=== PATIENT | male | born 1970 | race Hispanic/Latino ===

== ENCOUNTER 2017-09-16 13:51 | Emergency (ER) | payer OTHER ==
[~2017-09-16 13:51] MED LIST: GLYB1TAB3 PO; VALS1TAB54 PO
[2017-09-16 14:11] LABS: BASOPHILS % (AUTO) 1.2 % (0.0-5.0); EOSINOPHILS % (AUTO) 1.5 % (0.0-8.0); HEMATOCRIT 43.1 % (42-54); LYMPHOCYTES % (AUTO) 26.3 % (21.0-51.0); MEAN CORPUSCULAR HEMOGLOBIN 29.8 pg (27.0-33.0); MEAN CORPUSCULAR HGB CONC 34.4 g/dL (32.0-36.0); MEAN CORPUSCULAR VOLUME 86.7 fL (79-99); MONOCYTES % (AUTO) 8.3 % (3.0-13.0); NEUTROPHILS % (AUTO) 62.7 % (40.0-77.0); PLATELET COUNT (AUTO) 257 K/uL (130-400); RED BLOOD CELL COUNT(AUTO) 4.97 MIL/uL (4.50-6.20); RED CELL DISTRIBUTION WIDTH 13.4 % (11.0-15.5); WHITE BLOOD COUNT (AUTO) 6.1 K/uL (4.8-10.8)
[2017-09-16 14:27] LABS: INR 0.98 (0.85-1.15); PARTIAL THROMBOPLASTIN TIME 24.6 SEC (26.3-35.5); PROTHROMBIN TIME 10.3 SEC (9.6-11.6)
[2017-09-16 14:41] LABS: ALBUMIN 3.3 g/dL (3.5-5.0); BILIRUBIN,TOTAL 0.5 mg/dL (0.2-1.0); CREATININE 1.3 mg/dL (0.5-1.5); POTASSIUM 3.7 mmol/L (3.5-5.1); TOTAL PROTEIN, SERUM 7.1 g/dL (6.0-8.3)
[2017-09-16] MEDS ORDERED: FENTANYL CITRATE PF 50 MCG/1 ML 2ML VIAL ONE ×2 (14:59→15:14)
[2017-09-16] MEDS ORDERED: TETANUS/DIPHTHERIA TOXOID [ADULT] 0.5 ML VIAL IM ONE (15:00)
[2017-09-16] MEDS ORDERED: SODIUM CHLORIDE 0.9% 1000ML 2,000 ML IV ONE (15:25)
[2017-09-16] MEDS ORDERED: INSULIN HUMULIN R 100 UNIT/ML 3ML ONE (15:25)
[2017-09-27] MEDS ORDERED: INSNOV IVP (11:44)
[2017-09-27] MEDS ORDERED: ESCI10TA54 PO (11:44)
[2017-09-27] MEDS ORDERED: ACET1TAB25 PO (11:48)
[2017-09-27] MEDS ORDERED: INSLAN SQ (11:49)
[2017-09-27] MEDS ORDERED: CYCL5TAB PO (11:51)
== END 2017-09-16 18:14 | disposition home or self-care (01) ==
LOC: EDH 13:51
DX: S83.095A Other dislocation of left patella, initial encounter (principal); E11.9 Type 2 diabetes mellitus without complications; R79.1 Abnormal coagulation profile; W18.39XA Other fall on same level, initial encounter; Y93.89 Activity, other specified; Y92.89 Other specified places as the place of occurrence of the external cause; Y99.8 Other external cause status
CPT/HCPCS: 27560; 36415; 73560; 73562; 80053; 85025; 85610; 85730; 90471; 90714; 94761; 96374; 96375; 99291; J1815; J3010 ×2; J7030

== ENCOUNTER 2024-12-22 15:50 | Emergency (ER) | payer BC, SELFPAY ==
[~2024-12-22] VITALS: Ht 182.9 cm; Wt 133.8 kg
[~2024-12-22 15:50] MED LIST changes: +ACET-2079 PO; +CEPH500C2 PO; +CYCL5TAB3 PO; +ESCI-8 PO; +GLYB-173 PO; +INSLAN SQ; +INSNOV IVP; +INSU100I3 SQ; +TYL3 PO; -VALS1TAB54 PO; +VALS1TAB8 PO; +VALS1TAB81 PO
--- NOTE | 2024-12-22 16:32 | EKG ---
[facility] – [place], [place] Test Date: 2024-12-22 Test Time: 16:25:35 Pat Name: BECKY RIOS Department: ED Room: Gender: M [employer] Internship: 08 : 1970 Requested By: RENE MENDEZ Order Number: [id number] Reading MD: Yoni Oleary Measurements Intervals [place] Rate: 106 P: 2 [place]: 189 QRS: -69 QRSD: 104 T: 78 QT: 350 QTc: 464 Interpretive Statements Sinus tachycardia LAD, consider LAFB or inferior infarct Compared to ECG 10/09/2017 01:16:00 No significant changes Electronically Signed On 12-22-2024 19:00:46 FOOD ORDER EXPEDITER by Yoni Oleary Please click the below link to view image of tracing.
[2024-12-22 16:57] LABS: BASOPHILS # (AUTO) 0.03 K/uL (0.00-0.20); BASOPHILS % (AUTO) 0.4 % (0.0-5.0); EOSINOPHILS # (AUTO) 0.13 K/uL (0.00-0.70); EOSINOPHILS % (AUTO) 1.6 % (0.0-8.0); HEMATOCRIT 44.5 % (42-54); IMMATURE GRANULOCYTE ABSOLUTE 0.11 K/uL (0-1); LYMPHOCYTES # (AUTO) 1.2 K/uL (1.0-4.8); LYMPHOCYTES % (AUTO) 14.1 % (21.0-51.0); MEAN CORPUSCULAR HEMOGLOBIN 29.4 pg (27.0-33.0); MONOCYTES # (AUTO) 0.6 K/uL (0.1-1.0); MONOCYTES % (AUTO) 7.2 % (3.0-13.0); NEUTROPHILS # (AUTO) 6.2 K/uL (1.8-7.7); NEUTROPHILS % (AUTO) 75.4 % (40.0-77.0); PLATELET COUNT (AUTO) 305 K/uL (130-400); RED CELL DISTRIBUTION WIDTH 13.2 % (11.0-15.5); WHITE BLOOD COUNT (AUTO) 8.2 K/uL (4.8-10.8)
--- NOTE | 2024-12-22 17:00 | HMCIMG ---
CHEST 1VW HISTORY: Dizziness COMPARISON: 06/09/2014 FINDINGS: A frontal projection of the chest was obtained. No acute pulmonary infiltrates is seen. The heart is borderline enlarged. Prominent interstitial markings are seen. Degenerative changes are seen. No evidence of aortic calcification is seen. IMPRESSION: 1. No acute pulmonary infiltrate is seen.
[2024-12-22 17:09] LABS: CREATININE 1.1 mg/dL (0.5-1.3); POTASSIUM 3.8 mmol/L (3.5-5.1)
--- NOTE | 2024-12-22 17:40 | HMCIMG ---
CT HEAD WITHOUT CONTRAST INDICATION: Head injury headache TECHNIQUE: Noncontrast axial helical CT images from the vertex through the skull base using 5 mm slice thickness without contrast material. CT was performed with one or more of the following dose reduction techniques: Automated exposure control, adjustment of the mA and/or kV according to patient size, or use of iterative reconstruction technique. COMPARISON: None FINDINGS: The cerebral and cerebellar hemispheres are age-appropriate in appearance. No evidence for abnormal extra-axial fluid collections or masses. The ventricles and sulci are normal in size and configuration. No evidence for intracranial parenchymal, epidural, or subdural hemorrhage, mass effect or midline shift. The rivera-white matter differentiation is well preserved. No secondary evidence to suggest acute ischemia. The brainstem and cerebellum appear normal. The visualized orbits appear unremarkable. Mild left maxillary and bilateral ethmoid sinus mucosal thickening. Remainder of the visible paranasal sinuses and mastoid air cells are clear. The calvarium appears normal. IMPRESSION: No acute intracranial process identified.
--- NOTE | 2024-12-22 19:17 | ERN ---
ED Note History of Present Illness Stated Complaint: DIZZINESS, HEAD INJURY ONE WEEK AGO Chief Complaint: Dizzy/Light Headed Time Seen by MD: 19:12 Dictation: Picked up patient from Dr. Rene barrientos at 7:00 p.m. This is a 54-year-old morbidly obese male who presented to the emergency room with complaints of dizziness and not feeling well. He stated that he fell 1 week ago when he fell off the bed he was seen at [facility] and extensive workup was done which was negative. He fell 2 days later and saw his PCP who referred him to [facility] where an MRI MRA and extensive neurological workup was negative. He also had a UTI and stated that he was admitted there for a few days and discharged 3 days ago he was cleared to go back to work and as he went to work today began experiencing severe dizziness and he works [employer]. He indicated that he had sustained a similar kind of a fall in 2021 at which time he developed postconcussion syndrome and went through vestibular therapy. No loss of consciousness no obvious fractures or deformities, no bleeding or lacerations. Patient is not on any anticoagulation He is unsure about vertigo but does feel nausea with the dizziness. Temperature 98.2 pulse 100 respirations 16 blood pressure initial 189/87 which improved to 137/81, pulse oximetry 95% on room air His chronic medical problems include diabetes mellitus, hypercholesterolemia, hypertension, history of head trauma in 2021 Allergies: Coded Allergies: No Known Drug Allergies (Verified Allergy, Unknown, 06/09/14) Home Meds Active Scripts Meclizine HCl (Meclizine HCl) 25 Mg Tablet, 25 MG PO TID for vertigo, #30 TAB 0 Refills Prov:AMRIT VILLA MD 12/22/24 Prednisone (Prednisone) 20 Mg Tablet, 1 TAB PO AD for 6 Days, #14 TAB 0 Refills TAKE 1 TAB BY MOUTH THREE TIMES PER DAY X3 DAYS, THEN TAKE 1 TAB BY MOUTH TWICE A DAY X2 DAYS, THEN TAKE 1 TAB BY MOUTH ONCE A DAY X1 DAY. Prov:AMRIT VILLA MD 12/22/24 Reported Medications Insulin Glargine,Hum.rec.anlog (Lantus) 100 Units/Ml Inj, 30 UNITS SQ BID, ML 10/09/17 Insulin Aspart (Novolog Flexpen) 100 Unit/1 Ml Insuln.pen, 10 UNITS SQ BID, SYRINGE 10/09/17 Glyburide/Metformin HCl (Glyburide-Metformin 5-500 mg) 1 Each Tablet, 2 EACH PO BID, TAB 10/09/17 Valsartan/Hydrochlorothiazide (Valsartan-Hctz 320-25 mg Tab) 1 Each Tablet, 1 TAB PO DAILY, TAB 10/09/17 Acetaminophen with Codeine (Tylenol with Codeine #3) 1 Tab Tab, 1-2 TAB PO Q6H PRN for PAIN LEVEL 4 TO 6, TAB 10/09/17 Cephalexin (Cephalexin) 500 Mg Capsule, 500 MG PO Q6H for 10 Days, CAP 10/09/17 Cyclobenzaprine HCl (Cyclobenzaprine HCl) 5 Mg Tablet, 5 MG PO Q4PRN, TAB 09/27/17 Insulin Glargine,Hum.rec.anlog (Lantus) 100 Units/Ml Inj, 30 UNITS SQ BID, ML 09/27/17 Acetaminophen with Codeine (Acetaminophen-Cod #3 Tablet) 1 Each Tablet, 300 EACH PO Q4HPRN PRN for PAIN LEVEL 1 TO 5, TAB 09/27/17 Escitalopram Oxalate (Escitalopram Oxalate) 10 Mg Tablet, 10 MG PO HS, TAB 09/27/17 Insulin Aspart (Novolog) 100 Units/Ml Inj, 10 UNIT IVP BID, ML 09/27/17 Valsartan/Hydrochlorothiazide (Diovan Hct 320-25 mg Tablet) 1 Each Tablet, 1 EACH PO DAILY, TAB 06/14/14 Glyburide/Metformin HCl (Glucovance 5-500 mg Tablet) 1 Each Tablet, 2 EACH PO BID, TAB 06/14/14 Past Medical History Past Medical History: Diabetes-Type II, High Cholesterol, Hypertension Additional Past Medical Hx: NEUROPATHY, HEAD TRAUMA 2021 Surgical History: Other Surgical History Other: LEG Family History: Negative Social History: Negative RN Note Reviewed/Agreed w/PFSH: Yes Review of System Dictation Constitutional: Negative for fever,chills, and weight loss Eyes: Negative for injury, pain,redness, and discharge ENT: Negative for injury,pain or swelling Cardiovascular: Negative for chest pain, palpitations, and edema Respiratory: Negative for shortness of breath, cough, and wheezing, Abdomen/GI: Negative for abdominal pain, nausea, vomiting, diarrhea, and constipation Back: Negative for injury and pain : Negative for injury, bleeding and discharge MS/Extremity: Negative for injury and deformity Skin: Negative for rash, and discoloration Neuro: Negative for headache, weakness, numbness, tingling, and seizure reports feeling dizzy along with nausea Psych: Negative for suicide ideation, homicidal ideation, and hallucinations Initial Vital Sign VS Vital Signs Date Time Temp Pulse Resp B/P (MAP) Pulse Ox O2 Delivery O2 Flow Rate FiO2 12/22/24 15:52 98.2 100 16 189/87 95 Room Air 0 12/22/24 16:49 21 Physical Exam Dictation General: awake, alert, NAD morbidly obese Head/Face: Normocephalic, atraumatic Eyes: PERRL, EOMI, vision at baseline ENT: oral cavity clear, TMs clear, no signs of infection Neck: Trachea midline, supple, no nuchal rigidity Cardiovascular: RRR, normal S1/S2, No MRGs, no JVD Respiratory: CTAB, no respiratory distress, No rales or wheezes Abdomen: Soft, non-tender, non-distended, normal bowel sounds, no guarding or rebound. Skin: Warm, dry, normal turgor, no rash MS/Extremity: Pulses equal, no cyanosis, neurovascular intact, FROM Neuro: COAx4, GCS 15, strength 5/5, CN 2-12 intact, normal cerebellar exam, normal gait, Psych: Normal behavior, mood, and affect normal Extremities-trace edema without any palpable cords, Homans sign is negative Results (Laboratory/Radiology) Laboratory/Radiology Laboratory Tests Test 12/22/24 16:45 12/22/24 18:49 White Blood Count 8.2 K/uL (4.8-10.8) Red Blood Count 5.00 MIL/uL (4.50-6.20) Hemoglobin 14.7 g/dL (14.0-18.0) Hematocrit 44.5 % (42-54) Mean Corpuscular Volume 89.0 fL (79-99) Mean Corpuscular Hemoglobin 29.4 pg (27.0-33.0) Mean Corpuscular Hemoglobin Concent 33.0 g/dL (32.0-36.0) Red Cell Distribution Width 13.2 % (11.0-15.5) Platelet Count 305 K/uL (130-400) Mean Platelet Volume 8.4 fL (7.5-10.5) Immature Granulocyte % (Auto) 1.3 % (0-1) H Neutrophils (%) (Auto) 75.4 % (40.0-77.0) Lymphocytes (%) (Auto) 14.1 % (21.0-51.0) L Monocytes (%) (Auto) 7.2 % (3.0-13.0) Eosinophils (%) (Auto) 1.6 % (0.0-8.0) Basophils (%) (Auto) 0.4 % (0.0-5.0) Neutrophils # (Auto) 6.2 K/uL (1.8-7.7) Lymphocytes # (Auto) 1.2 K/uL (1.0-4.8) Monocytes # (Auto) 0.6 K/uL (0.1-1.0) Eosinophils # (Auto) 0.13 K/uL (0.00-0.70) Basophils # (Auto) 0.03 K/uL (0.00-0.20) Absolute Immature Granulocyte (auto 0.11 K/uL (0-1) Nucleated Red Blood Cells 0.0 % (0.0-0.19) Sodium Level 134 mmol/L (136-145) L Potassium Level 3.8 mmol/L (3.5-5.1) Chloride Level 99 mmol/L (101-111) L Carbon Dioxide Level 29 mmol/L (21-32) Blood Urea Nitrogen 15 mg/dL (7-18) Creatinine 1.1 mg/dL (0.5-1.3) Glomerular Filtration Rate Calc 79 mL/min (>90) Random Glucose 147 mg/dL (70-105) H Total Calcium 8.5 mg/dL (8.5-10.1) Urine Color YELLOW (YELLOW) Urine Appearance CLEAR (CLEAR) Urine pH 6.5 (5.0-8.0) Urine Specific Gabbs 1.029 (1.001-1.031) Urine Protein 30 mg/dL (NEGATIVE) H Urine Glucose (UA) 500 mg/dL (NEGATIVE) H Urine Ketones NEGATIVE mg/dL (NEGATIVE) Urine Occult Blood SMALL (NEGATIVE) H Urine Nitrate 2+ (NEGATIVE) H Urine Bilirubin NEGATIVE mg/dL (NEGATIVE) Urine Urobilinogen 0.2 mg/dL (0.2-1.0) Urine Leukocyte Esterase 25 Prashanth/uL (NEGATIVE) H Urine RBC 11-25 /HPF (0-1) H Urine WBC 11-25 /HPF (0-1) H Urine Squamous Epithelial Cells RARE /HPF (0-2) Urine Bacteria RARE /HPF (None Seen) Urine Yeast RARE /HPF (None Seen) Labs Reviewed?: Yes X-RAY Comment: PATIENT: BECKY RIOS MR#: [id number] : 1970 SEX: M AGE: 54 LOCATION: [facility] ORDER 1612 STATUS: [facility] REPORT#: [id number] SERVICE 1610 REASON: DIZZY ORDERING PHYSICIAN: RENE BARRIENTOS DO PROCEDURE: CXR1VW - CHEST 1VW CHEST 1VW HISTORY: Dizziness COMPARISON: 06/09/2014 FINDINGS: A frontal projection of the chest was obtained. No acute pulmonary infiltrates is seen. The heart is borderline enlarged. Prominent interstitial markings are seen. Degenerative changes are seen. No evidence of aortic calcification is seen. IMPRESSION: 1. No acute pulmonary infiltrate is seen. DICTATED BY: CHRISTY MCDANIEL MD DATE: 12/22/24 165 ELECTRONICALLY SIGNED BY: CHRISTY MCDANIEL MD DATE: 12/22/[address] Scan Comment: CT HEAD WITHOUT CONTRAST INDICATION: Head injury headache TECHNIQUE: Noncontrast axial helical CT images from the vertex through the skull base using 5 mm slice thickness without contrast material. CT was performed with one or more of the following dose reduction techniques: Automated exposure control, adjustment of the mA and/or kV according to patient size, or use of iterative reconstruction technique. COMPARISON: None FINDINGS: The cerebral and cerebellar hemispheres are age-appropriate in appearance. No evidence for abnormal extra-axial fluid collections or masses. The ventricles and sulci are normal in size and configuration. No evidence for intracranial parenchymal, epidural, or subdural hemorrhage, mass effect or midline shift. The rivera-white matter differentiation is well preserved. No secondary evidence to suggest acute ischemia. The brainstem and cerebellum appear normal. The visualized orbits appear unremarkable. Mild left maxillary and bilateral ethmoid sinus mucosal thickening. Remainder of the visible paranasal sinuses and mastoid air cells are clear. The calvarium appears normal. IMPRESSION: No acute intracranial process identified. DICTATED BY: KADIE MAS MD DATE: 12/22/24 1721 ELECTRONICALLY SIGNED BY: KADIE MAS MD DATE: 12/22/24 1740 ED Course ED Course Orders Procedure Category Date Status Time 12 Lead Ekg Tracing- EKG 12/22/24 Resulted Technical 16:10 Chest 1vw RAD 12/22/24 Resulted 16:10 Cbc With Differential LAB 12/22/24 Complete 16:10 Basic Metabolic Panel LAB 12/22/24 Complete 16:10 Ct Head/Brain W/O CT 12/22/24 Resulted Contrast 16:56 Urinalysis LAB 12/22/24 Complete W/Microscopic 19:00 Culture Urine ONIEL 12/22/24 In Process 19:24 Methylprednisolone PHA 12/22/24 Complete Succ 40mg (Solu-Medro 20:00 Meclizine Hcl 25 Mg PHA 12/22/24 Complete (Antivert 25 Mg) 20:00 Current Medications Medications (Trade) Dose Ordered Sig/Tenisha Route PRN Reason Start Time Stop Time Status Last Admin Dose Admin Meclizine HCl (ANTIvert 25 mg) 25 mg ONCE ONCE PO 12/22/24 20:00 12/22/24 20:01 DC 12/22/24 19:37 Methylprednisolone Sodium Succinate (Solu-medROL 40MG) 40 mg ONCE ONCE IVP 12/22/24 20:00 12/22/24 20:01 DC 12/22/24 19:38 Vital Signs Date Time Temp Pulse Resp B/P (MAP) Pulse Ox O2 Delivery O2 Flow Rate FiO2 12/22/24 20:27 98.2 96 16 140/76 98 Room Air* 0 21 12/22/24 16:49 99.1 98 16 137/81 98 Room Air* 0 21 12/22/24 15:52 98.2 100 16 189/87 95 Room Air 0 We will perform diagnostic labs, advanced imaging and administer medications according to the patient's complaint. Once the results are available, will review and personally interpreted the labs to rule out any acute life- threatening emergency the trach require immediate intervention and treatment. I will then re-evaluate the patient after treatment and diagnostic exams have return to determine whether the patient requires any further testing, can safely be discharged home or need further admission to hospital for additional treatment and evaluation. Reviewed labs CBC is with a normal limits. BNP 7 shows a BUN and creatinine of [address] scan of the head is negative for any acute intracranial abnormality. Chest x-ray is negative. I had a long discussion with the patient that his symptoms could be related to diabetic autonomic dysfunction and vasovagal symptoms. I recommended a short trial of steroid with close monitoring of sugars and ad just his insulin accordingly Also recommended that he pursue sleep study as obstructive sleep apnea could also lead to autonomic dysfunction with all his comorbidities. He verbalized full understanding Medical Decision Making MDM MDM: Differential diagnosis: Rationale: Tests considered and ordered secondary to shared decision making include: Previous outside records reviewed: Old ER visits. Risk of complication and/or morbidity or mortality of patient management: None Medications-Per medication reconciliation Need for hospitalization: Patient does not meet criteria for hospitalization. Need for emergency major/minor surgery: No There are no social concerns with this patient. Prescription drug management Prescriptions will include symptomatic care Patient's prior external medical records from other ER visits were reviewed by me as indicated. Prior testing and results from previous visits were reviewed. Prior tests were taken into account with medical decision making and resource utilization, independent historian/historians were used to obtain complete medical history. I independently interpreted the test that were performed, results were reviewed by me and considered findings on radiology if ordered. Medical management and examination interpretation discussions were had by me with other qualified healthcare professionals as indicated for the patient's care. Problem List Problem List: (1) Dizziness (2) History of closed head injury (3) Autonomic dysfunction with type 2 diabetes mellitus DX & DISP Disposition: Discharge Departure Impression: Primary Impression: Dizziness Additional Impressions: History of closed head injury, Autonomic dysfunction with type 2 diabetes mellitus Condition: Stable Scripts Meclizine HCl (Meclizine HCl) 25 Mg Tablet 25 MG PO TID for vertigo, #30 TAB 0 Refills Prov: AMRIT VILLA MD 12/22/24 Prednisone (Prednisone) 20 Mg Tablet 1 TAB PO AD for 6 Days, #14 TAB 0 Refills TAKE 1 TAB BY MOUTH THREE TIMES PER DAY X3 DAYS, THEN TAKE 1 TAB BY MOUTH TWICE A DAY X2 DAYS, THEN TAKE 1 TAB BY MOUTH ONCE A DAY X1 DAY. Prov: AMRIT VILLA MD 12/22/24 Additional Instructions: Patient and the caregiver have been informed of all the diagnostic tests and the imaging conducted during the today's visit to the emergency room and has verbalized understanding of the results I have personally reviewed and interpreted all diagnostic exams performed here in the ER today as well as the vital signs documented by the nursing staff. The patient is now being discha rged to home and should follow up with the primary care physician or the specialist as directed by the ER staff. Follow-up with primary care provider in 1 to 2 days. Take medications as directed here in the emergency room. Okay to continue home medications unless otherwise discussed during your visit in the emergency room today. Return to your nearest emergency room if symptoms worsen or if there is no improvement. Call 911 if you need immediate assistance. Take Tylenol or Motrin [id number] as needed and if no contraindications are present. Increase oral hydration. A wound culture or urine culture was ordered here in the emergency room department please follow-up with primary care provider and advise them to get repeat ports from our facility. If you had any Steve wrap/splints that were applied here, please do not remove them until you see your primary care or specialty. Referrals: MARCI ELY MD (PCP) AMRIT VILLA MD Dec 22, 2024 19:17
[2024-12-22 19:23] LABS: APPEARANCE,URINE CLEAR (CLEAR); BACTERIA,URINE RARE /HPF (None Seen); BILIRUBIN,URINE NEGATIVE (NEGATIVE); COLOR,URINE YELLOW (YELLOW); GLUCOSE, URINE (UA) 500 mg/dL (NEGATIVE); KETONES,URINE NEGATIVE (NEGATIVE); LEUKOCYTE ESTERASE ,URINE 25 Leu/uL (NEGATIVE); MUCUS,URINE RARE LPF (None Seen); NITRATE,URINE 2+ (NEGATIVE); OCCULT BLOOD,URINE SMALL (NEGATIVE); PH,URINE 6.5 (5.0-8.0); PROTEIN,URINE 30 mg/dL (NEGATIVE); SQUAMOUS EPITHELIAL CELL,UR RARE /HPF (0-2); UROBILINOGEN,URINE 0.2 mg/dL (0.2-1.0); YEAST,URINE BUDDING RARE /HPF (None Seen)
[2024-12-22] MEDS: mecliZINE HCL 25 MG TABLET PO ONE (19:37)
[2024-12-22] MEDS: Solu-medROL 40MG VIAL IVP ONE (19:38)
--- NOTE | 2024-12-22 20:13 | HP ---
[facility] HISTORY & PHYSICAL Date Patient Seen: Dec 22, 2024 Time of Visit: 20:09 Supervising Physician: Dr Garcia Oleary Primary Care Physician: Dr Mishra Outpatient Specialists: [ ] Inpatient Consults: [ ] PROBLEM LIST: Urinary tract infection POA Hyponatremia, POA Alteration in mental status, POA DM type 2, POA Hypertension Hyperlipidemia Debility, POA PLAN: Admit to medical-surgical floor VS per unit protocol Keep head of bed above 30 Aspiration precautions PT/OT eval and treat Keep systolic blood pressure less than 160 P.r.n. hydralazine and labetalol Start ceftriaxone IV for cystitis Keep serum glucose less than 150 ISS and fingerstick per unit protocol Bilateral SCDs Treat fever aggressively Monitor temperature curve CBC, CMP, magnesium level in HPI: [ ] PAST MEDICAL HX: see above PAST SURGICAL HX: noncontributory SOCIAL HISTORY: No tobacco, ETOH, or illicit drug use Coded Allergies: No Known Drug Allergies (Verified Allergy, Unknown, 06/09/14) REVIEW OF SYSTEMS: 12 point ROS reviewed with patient. Pertinent positives mentioned above. Otherwise negative. PHYSICAL EXAM: GENERAL: alert, weak, awake oriented x 3 HEENT: EOMI, Sclera non icteric, moist mucosa NECK: Supple, no JVD, trachea midline LUNGS: Clear breath sounds bilaterally. No wheezes HEART: Regular rate and rhythm. Normal S1 and S2, without murmurs ABD: Abdomen soft, nontender. Bowel sounds present EXT: No clubbing cyanosis or edema NEURO: Alert and oriented to person, follows commands Vital Signs (last 8hr) Date Time Temp Pulse Resp B/P (MAP) Pulse Ox O2 Delivery O2 Flow Rate FiO2 12/22/24 16:49 99.1 98 16 137/81 98 Room Air* 0 21 12/22/24 15:52 98.2 100 16 189/87 95 Room Air 0 LABS: Hematology Labs: Test 12/22/24 16:45 Range/Units White Blood Count 8.2 4.8-10.8 K/uL Red Blood Count 5.00 4.50-6.20 MIL/uL Hemoglobin 14.7 14.0-18.0 g/dL Hematocrit 44.5 42-54 % Mean Corpuscular Volume 89.0 79-99 fL Mean Corpuscular Hemoglobin 29.4 27.0-33.0 pg Mean Corpuscular Hemoglobin Concent 33.0 32.0-36.0 g/dL Red Cell Distribution Width 13.2 11.0-15.5 % Platelet Count 305 130-400 K/uL Mean Platelet Volume 8.4 7.5-10.5 fL Immature Granulocyte % (Auto) 1.3 H 0-1 % Neutrophils (%) (Auto) 75.4 40.0-77.0 % Lymphocytes (%) (Auto) 14.1 L 21.0-51.0 % Monocytes (%) (Auto) 7.2 3.0-13.0 % Eosinophils (%) (Auto) 1.6 0.0-8.0 % Basophils (%) (Auto) 0.4 0.0-5.0 % Neutrophils # (Auto) 6.2 1.8-7.7 K/uL Lymphocytes # (Auto) 1.2 1.0-4.8 K/uL Monocytes # (Auto) 0.6 0.1-1.0 K/uL Eosinophils # (Auto) 0.13 0.00-0.70 K/uL Basophils # (Auto) 0.03 0.00-0.20 K/uL Absolute Immature Granulocyte (auto 0.11 0-1 K/uL Nucleated Red Blood Cells 0.0 0.0-0.19 % Chemistry Labs: Test 12/22/24 16:45 Range/Units Sodium Level 134 L 136-145 mmol/L Potassium Level 3.8 3.5-5.1 mmol/L Chloride Level 99 L 101-111 mmol/L Carbon Dioxide Level 29 21-32 mmol/L Blood Urea Nitrogen 15 7-18 mg/dL Creatinine 1.1 0.5-1.3 mg/dL Glomerular Filtration Rate Calc 79 >90 mL/min Random Glucose 147 H 70-105 mg/dL Total Calcium 8.5 8.5-10.1 mg/dL DIAGNOSTICS / RADIOLOGY RESULTS: [ ] PLAN NEURO: Minimize central acting medications as possible. Maintain fall precautions, adequate lighting during the day PULMONARY: Supplemental 02 as needed. Maintain aspiration precautions at all times CARDIOVASCULAR: Follow hemodynamics. Vital signs per facility protocol GI & NUTRITION: Continue with nutritional support. Continue stool softeners and laxatives as needed. KIDNEYS & ELECTROLYTES: Strict monitoring of intake, output and overall fluid balance. Avoid nephrotoxic medications to the extent possible. Medications to be dosed according to renal function. Monitor electrolytes and replace as needed ENDOCRINE: Maintain blood glucose between 100-180 at all times. Hypoglycemia protocol in place INFECTIOUS DISEASE: Trend temperature, WBC and procalcitonin level Follow cultures, deescalate antibiotics as soon as possible. Panculture if new onset fever ONCOLOGY/HEMATOLOGY/COAGULATION: Monitor for s/s of bleeding Monitor hemoglobin, coagulation studies as needed SKIN: Pressure ulcer prevention per facility protocol Specialty mattress ORTHO/REHAB: Continue PT/OT Prophylaxis: Continue GI and DVT prophylaxis Code Status: Full Resuscitation Disposition: TBD Other: Total patient care time exceeds 35 minutes excluding all procedures. HARJIT BURKETT INSIDE SALES ADMINISTRATOR Dec 22, 2024 20:13
[2024-12-22] MEDS ORDERED: PRED20TA3 PO (20:17)
[2024-12-22] MEDS ORDERED: MECL-302 PO (20:17)
[2024-12-22 20:27] VITALS: BP 140/76; PULSE 96; RESP 16; TEMP 98.3; O2SAT 98
== END 2024-12-22 20:36 | disposition home or self-care (01) ==
LOC: EDH 15:50
DX: R42 Dizziness and giddiness (principal); E11.43 Type 2 diabetes mellitus with diabetic autonomic (poly)neuropathy; E78.00 Pure hypercholesterolemia, unspecified; I10 Essential (primary) hypertension; Z79.4 Long term (current) use of insulin; Z79.84 Long term (current) use of oral hypoglycemic drugs; Z79.899 Other long term (current) drug therapy
CPT/HCPCS: 99284; 96374; 70450; 71045; 80048; 85025; 87086 ×2; 87186; 81001; 36415; 93005; J2919